=== PATIENT | male | born 1940 | race Caucasian/White ===

== ENCOUNTER 2020-02-10 14:42 | Emergency (ER) | payer MEDICARE ==
[~2020-02-10] VITALS: Ht 167.6 cm; Wt 75.0 kg
[~2020-02-10 14:42] MED LIST: AUGMENTIN500TAB PO; CEPHALEXIN500 MG PO; CLARITIN10 M1 PO; CLARITIN10 MG PO; FLEXERIL OR; FLONASE NASAL50 MCG; LEVOTHYROXIN50 MCG PO; LORTAB 5 PO; NAPROSYN500 MG OR; NO HOME MEDS; PERCOCET1 TAB OR
[2020-02-10] MEDS ORDERED: KEFLEX500 M1 PO (17:08)
[2020-02-10 17:17] VITALS: BP 144/76
== END 2020-02-10 17:17 | disposition home or self-care (01) ==
LOC: ED 14:42
PROC: 0HQ3XZZ Repair Left Ear Skin, External Approach (ICD-10-PCS; principal; 2020-02-10)
PROC: 0HQCXZZ Repair Left Upper Arm Skin, External Approach (ICD-10-PCS; 2020-02-10)
DX: S01.312A Laceration without foreign body of left ear, initial encounter (principal); S41.112A Laceration without foreign body of left upper arm, initial encounter; F17.200 Nicotine dependence, unspecified, uncomplicated; W31.1XXA Contact with metalworking machines, initial encounter; Y93.89 Activity, other specified; Y92.71 Barn as the place of occurrence of the external cause